=== PATIENT | female | born 1970 | race American Indian/Alaskan Native ===

== ENCOUNTER 2022-05-29 10:29 | Emergency (ER) | payer MEDICAID, OTHER ==
[2022-05-29 10:53] VITALS: BP 132/76; PULSE 83
== END 2022-05-29 11:49 | disposition home or self-care (01) ==
LOC: JP.ED 10:29
DX: L84 Corns and callosities (principal); E11.42 Type 2 diabetes mellitus with diabetic polyneuropathy; Z72.0 Tobacco use; Z88.6 Allergy status to analgesic agent
CPT/HCPCS: 99282

== ENCOUNTER 2024-02-27 21:41 | Emergency (ER) | payer MEDICAID ==
[2024-02-27 21:49] VITALS: BP 159/70; PULSE 98
== END 2024-02-27 22:18 | disposition home or self-care (01) ==
LOC: JP.ED 21:41
DX: L03.012 Cellulitis of left finger (principal); E11.9 Type 2 diabetes mellitus without complications; F17.210 Nicotine dependence, cigarettes, uncomplicated; Z79.82 Long term (current) use of aspirin; Z79.4 Long term (current) use of insulin; Z79.899 Other long term (current) drug therapy; Z88.8 Allergy status to other drugs, medicaments and biological substances
CPT/HCPCS: 99283

== ENCOUNTER 2025-05-10 10:04 | Emergency (ER) | payer MEDICAID ==
[2025-05-10 10:41] VITALS: BP 136/81; PULSE 82
[2025-05-10] MEDS: Ketorolac 30 MG/ML SDV IM ONE (11:08)
== END 2025-05-10 13:30 | disposition home or self-care (01) ==
LOC: JP.ED 10:04
DX: R07.89 Other chest pain (principal); I10 Essential (primary) hypertension; E78.00 Pure hypercholesterolemia, unspecified; M19.90 Unspecified osteoarthritis, unspecified site; E11.9 Type 2 diabetes mellitus without complications; F17.200 Nicotine dependence, unspecified, uncomplicated; Z88.8 Allergy status to other drugs, medicaments and biological substances; Z79.4 Long term (current) use of insulin; Z79.82 Long term (current) use of aspirin; Z79.84 Long term (current) use of oral hypoglycemic drugs; Z79.899 Other long term (current) drug therapy
CPT/HCPCS: 96372; 99283; J1171; J1885